=== PATIENT | male | born 2000 | race Hispanic/Latino ===

== ENCOUNTER 2025-02-11 08:37 | Emergency (ER) | payer SELFPAY ==
[~2025-02-11] VITALS: Ht 167.6 cm; Wt 65.8 kg
--- NOTE | 2025-02-11 09:43 | ERN ---
General Chief Complaint: Other Problems Stated Complaint: RT INGUINAL HERNIA Time Seen by MD: 08:42 Source: patient History of Present Illness Initial Comments Patient is a 24-year-old male coming in to be evaluated for right inguinal pain. Patient states that this has been ongoing for several months. He also states that recently he has been hurting a little bit more he states that the pain is exacerbated with movement. Allergies: Coded Allergies: No Known Allergies (Unverified Allergy, Unknown, 02/11/25) Past Medical History Past Medical History: No Pertinent History Past Surgical History: None ROS Dictation CONSTITUTIONAL: No chills, no fever, no weakness, no diaphoresis, no malaise. HEAD/FACE: No signs of trauma. EENT: No eye pain, no blurred vision, no tearing, no double vision, no ear pain, no ear discharge, no nose pain, no nasal congestion, no throat pain, no throat swelling, no mouth pain. RESPIRATORY: No cough, no orthopnea, no SOB, no stridor, no wheezing. CARDIOVASCULAR: No chest pain, no edema, no palpitations, no syncope. GASTROINTESTINAL/ABDOMINAL: No abdominal pain, no constipation, no diarrhea, no nausea, no vomiting. GENITOURINARY: No abnormal discharge, no dysuria, no frequent urination, no hematuria. No complaints of pain in the genitals. MUSCULOSKELETAL: No back pain, no gout, no joint pain, no joint swelling, muscle pain, no muscle stiffness, no neck pain. INTEGUMENTARY: No change in color, no change in hair/nails, no dryness, no lesion, no lumps, no rash. NEUROLOGICAL/PSYCH: No anxiety, not depressed, no emotional problem, no headache, no numbness, no pre-existing deficit, no history of seizures, no tremors, no weakness. HEMATOLOGIC/LYMPHATIC: Not anemic, no history of blood clots, no apparent bleeding, no bruising, glands not swollen. All Systems Negative, Except as Noted. Physical Exam Physical Exam Dictation VITAL SIGNS: Reviewed. GENERAL APPEARANCE: Alert, oriented x3, no acute distress, obese. HEAD AND FACE: Non-traumatic. EYES: PERRL, pink conjunctivas, eyelid no trauma, anterior chamber clear. EARS: Pinnas intact and no signs of trauma or erythema. Ear canals clear and no discharge. TMs no erythema. NOSE: No discharge, no bleeding. OROPHARYNX: Mouth normal, teeth no caries, tongue pink. Pharynx clear, no erythema. Tonsils no exudates, no abscesses noted. Mucous membrane moist. NECK: Supple, non-tender, no thyromegaly, no masses, no JVD, no bruits. BREAST: Deferred. CHEST: No tenderness, no crepitus, no paradoxical movement, no retractions. LUNGS: Clear, well-ventilated, symmetric, no rales, no wheezing, no rhonchi, no stridor, good breath sounds bilaterally. HEART: Regular rate, regular rhythm, no murmur, no gallops. VASCULAR: No peripheral edema. ABDOMEN: Soft, positive bowel sounds, nondistended, no guarding, nontender, no rebound, no masses no hepatomegaly, no splenomegaly, no Guerrero's sign, no hernias. RECTAL: Deferred. GENITAL: Deferred. NEUROLOGICAL: Normal speech, gross motor function intact, gross sensory funct ion intact. MUSCULOSKELETAL: Neck nontender, full range of motion, back nontender, full range of motion. EXTREMITIES: Nontender, full range of motion. Right inguinal tenderness on palpation swelling, SKIN: Color pink, dry, no turgor, no rash, no lacerations, no abrasions, no contusions. LYMPHATICS: Deferred. Results Laboratory and Microbiology Labs Reviewed?: Yes EKG/XRAY/US/CT/MRI Ultrasound Comment [address] [place] [id number] IMAGING REPORT Signed PATIENT: AL TRAN MR#: [id number] : 2000 SEX: M AGE: 24 LOCATION: [facility] ORDER 0 STATUS: [facility] REPORT#: [id number] SERVICE 9 REASON: right inguinal pain/ hernia ORDERING PHYSICIAN: CHUCKIE LOVETT MD PROCEDURE: SOFT GROIN - US SOFT TISSUE GROIN Exam Type: US SOFT TISSUE GROIN Clinical Information: right inguinal pain/ hernia Comparison: None Findings and impression: Right inguinal hernia is seen containing only peritoneal fat measuring 6.1 cm. DICTATED BY: DEBBY GERMAN MD DATE: 02/11/25955 ELECTRONICALLY SIGNED BY: DEBBY GERMAN MD DATE: 02/11/25 1000 MDM MDM: Differential diagnosis: Inguinal hernia, direct hernia, indirect hernia, strangulation, Rationale: Tests considered and ordered secondary to shared decision making include: Previous outside records reviewed: Old ER visits. Patient is a 24-year-old male coming in to be evaluated for right inguinal pain. Patient states that the pain has been ongoing for several months. Patient also states that the pain is exacerbated wound went. Ultrasound was performed no strangulation good vascularity hernia is reducible. Patient will be advised to follow up with surgeon and her PCP. ED Course Orders Procedure Category Date Status Time Us Soft Tissue Groin US 02/11/25 Resulted 09:20 Vital Signs Date Time Temp Pulse Resp B/P (MAP) Pulse Ox O2 Delivery O2 Flow Rate FiO2 02/11/25 09:44 98.1 68 17 142/78 98 Room Air* 0 21 02/11/25 09:17 66 18 136/83 100 Room Air* 0 21 02/11/25 08:40 97.9 73 16 141/95 99 Room Air 0 DX & DISP Disposition: Discharge Departure Impression: Primary Impression: Right inguinal hernia Condition: Stable Additional Instructions: FOLLOW-UP WITH PRIMARY CARE PROVIDER IN 1 TO 2 DAYS. TAKE MEDICATIONS DIRECTED HERE IN THE EMERGENCY ROOM. OKAY TO CONTINUE HOME MEDICATIONS UNLESS OTHERWISE DISCUSSED DURING YOUR VISIT IN THE EMERGENCY ROOM TODAY. RETURN TO YOUR NEAREST EMERGENCY ROOM IF SYMPTOMS WORSEN OR IF THERE IS NO IMPROVEMENT. CALL 911 IF YOU NEED IMMEDIATE ASSISTANCE. TAKE TYLENOL [id number] NEEDED AND IF NO CONTRAINDICATIONS ARE PRESENT. INCREASE ORAL HYDRATION. A WOUND CULTURE OR URINE CULTURE WAS ORDERED HERE IN THE EMERGENCY ROOM DEPARTMENT PLEASE FOLLOW-UP WITH PRIMARY CARE PROVIDER AND ADVISE THEM TO GET REPEAT PORTS FROM OUR FACILITY. IF YOU HAD ANY ROLAN WRAP/SPLINTS THAT WERE APPLIED HERE, PLEASE DO NOT REMOVE THEM UNTIL YOU SEE YOUR PRIMARY CARE OR SPECIALTY. Referrals: Referrals: SELF,REFERRAL (PCP) JUSTIN LOCO MD, LUIS A MD Time of Disposition: 09:43 CHUCKIE LOVETT MD Feb 11, 2025 09:43
[2025-02-11 09:44] VITALS: BP 142/78; PULSE 68; RESP 17; TEMP 98.1; O2SAT 98
--- NOTE | 2025-02-11 09:45 | NUR ---
PT STABLE NO DISTERESS VITALS WNL NO PT STATES PAIN IS TOLERABLE NOW, INSTRUCTIONS GIVEN FOR HOME. PT IV REMOVED, CATHETER INATACT. PT DRESSED HIMSELF, TAKEN TO ED LOBBY IN W/C DRIVEN HOME BY FAMILY.
--- NOTE | 2025-02-11 10:00 | HMCIMG ---
Exam Type: US SOFT TISSUE GROIN Clinical Information: right inguinal pain/ hernia Comparison: None Findings and impression: Right inguinal hernia is seen containing only peritoneal fat measuring 6.1 cm.
== END 2025-02-11 10:51 | disposition home or self-care (01) ==
LOC: EDH 08:37
DX: K40.90 Unilateral inguinal hernia, without obstruction or gangrene, not specified as recurrent (principal)
CPT/HCPCS: 76882; 99284